=== PATIENT | female | born 1980 | race Caucasian/White ===

== ENCOUNTER 2017-02-06 10:24 | Emergency (ER) | payer MEDICARE, MEDICAID ==
[~2017-02-06] VITALS: Ht 165.1 cm; Wt 61.5 kg
[~2017-02-06 10:24] MED LIST: LANTUS2P SC; METF500 PO; XARE20TA PO
[2017-02-06 10:27] VITALS: BP 121/82; PULSE 97; RESP 18; TEMP 98.6; O2SAT 97
[2017-02-06] MEDS ORDERED: LANTUS2P SQ (10:50)
[2017-02-06] MEDS ORDERED: METF1000 PO (10:50)
[2017-02-06] MEDS ORDERED: GLUC10TA3 PO (10:50)
[2017-02-06] MEDS ORDERED: OMEP40CA2 PO (10:51)
[2017-02-06] MEDS ORDERED: SODIUM CHLOR 0.9% 1000 ML INJ 1,000 ML IV ONE (11:07)
--- NOTE | 2017-02-06 11:20 | PD ---
HPI Chief Complaint: Medical Clearance Time Seen by Provider: 11:09 Travel History International Travel<30 days: No Contact w/Intl Traveler<30days: No Traveled to known affect area: No History of Present Illness HPI 36 year old female presents to the emergency department for evaluation of lower abdominal cramping, increased vaginal bleeding since giving on 01/21/17 in [place], [place]. She has not followed up with a solar/renewable energy sales/croze cutter helper since delivering her child. She states she is unsure how far along she was when she gave , but denies any complications. She states she did have OB care during her . She states after giving , she moved to [place] to be near family. She denies any fevers, chills. She reports being a G7 , P7. Patient is unsure how many pads she is going through states she changes her when she goes to the bathroom. Patient denies any chest pain. She does report history of anemia, type 2 diabetes, asthma, DVT in the arm. She states she has not taken her Xarelto in a few weeks. Patient is also asking for a tubal ligation. [facility] Past Medical History Anemia: Yes Arthritis: Yes Asthma: Yes Chest Pain: Yes Diabetes: Yes Patient Takes Glucophage: Yes Diminished Hearing: No Headaches: Yes Respiratory: Yes (BRONCHITIS) Migraines: Yes Influenza Vaccination: No ?: Not LMP: APRIL 2016 : 7 Para: 6 Miscarriage: 0 : 0 Dilation and Curettage (D&C): Yes (09/2007 AFTER OF CHILD (PT DENIES)) Social History Alcohol Use: No Tobacco Use: Yes (10 cigarettes a day) Substance Use: No Allergies-Medications (Allergen,Severity, Reaction): Coded Allergies: Cipro (Verified Allergy, Severe, rash, 02/06/17) Doxycycline (Verified Allergy, Severe, rash, 02/06/17) Penicillin (Verified Allergy, Severe, hives, 02/06/17) Dilaudid (Unverified Adverse Reaction, Intermediate, ITCHING, 02/06/17) Tramadol (Verified Adverse Reaction, Intermediate, ITCH, 02/06/17) Reported Meds & Prescriptions Reported Meds & Active Scripts Active Reported Omeprazole 40 Mg Cap 40 Mg PO TID Lantus Inj (Insulin Glargine) 1,000 Unit/10 Ml Vial 14 Units SQ HS Metformin (Metformin HCl) 1,000 Mg Tab 1,000 Mg PO HS With a meal Glucotrol (Glipizide) 10 Mg Tab 10 Mg PO DAILY Take 30 minutes before a meal Xarelto (Rivaroxaban) 20 Mg Tab 20 Mg PO DAILY Review of Systems Except as stated in HPI: all other systems reviewed are Neg Physical Exam Narrative GENERAL: Well-nourished, well-developed female patient, ambulatory. Afebrile. SKIN: Focused skin assessment warm/dry. HEAD: Normocephalic. Afebrile. EYES: No scleral icterus. No injection or drainage. NECK: Supple, trachea midline. No JVD or lymphadenopathy. CARDIOVASCULAR: Regular rate and rhythm without murmurs, gallops, or rubs. RESPIRATORY: Breath sounds equal bilaterally. No accessory muscle use. Lungs sounds are clear to auscultation. GASTROINTESTINAL: Abdomen soft and nondistended. Pelvic tenderness to palpation. No peritoneal signs. MUSCULOSKELETAL: No cyanosis, or edema. BACK: Nontender without obvious deformity. No CVA tenderness. Data Data Last Documented VS Vital Signs Date Time Temp Pulse Resp B/P Pulse Ox O2 Delivery O2 Flow Rate FiO2 02/06/17 10:27 98.6 97 18 121/82 97 Room Air Orders Complete Blood Count With Diff (02/06/17 11:07) Basic Metabolic Panel (Bmp) (02/06/17 11:07) Us Pelvis Comp Rose Grading Supervisor/Non-Preg (02/06/17 ) Urinalysis - C+S If Indicated (02/06/17 11:07) Iv Access Insert/Monitor (02/06/17 11:07) Sodium Chlor 0.9% 1000 Ml Inj (Ns 1000 M (02/06/17 11:07) Ed Urine Pregnancytest Poc (02/06/17 11:07) Urine Culture (02/06/17 11:53) Beta Hcg (Quant/Titer) (02/06/17 12:20) Labs Laboratory Tests Test 02/06/17 02/06/17 02/06/17 11:25 11:32 12:20 White Blood Count 9.7 TH/MM3 Red Blood Count 4.19 MIL/MM3 Hemoglobin 9.9 GM/DL Hematocrit 31.4 % Mean Corpuscular Volume 74.9 FL Mean Corpuscular Hemoglobin 23.5 PG Mean Corpuscular Hemoglobin 31.4 % Concent Red Cell Distribution Width 18.5 % Platelet Count 472 TH/MM3 Mean Platelet Volume 6.9 FL Neutrophils (%) (Auto) 66.0 % Lymphocytes (%) (Auto) 26.6 % Monocytes (%) (Auto) 4.3 % Eosinophils (%) (Auto) 2.1 % Basophils (%) (Auto) 1.0 % Neutrophils # (Auto) 6.4 TH/MM3 Lymphocytes # (Auto) 2.6 TH/MM3 Monocytes # (Auto) 0.4 TH/MM3 Eosinophils # (Auto) 0.2 TH/MM3 Basophils # (Auto) 0.1 TH/MM3 CBC Comment DIFF FINAL Differential Comment Sodium Level 138 MEQ/L Potassium Level 3.7 MEQ/L Chloride Level 107 MEQ/L Carbon Dioxide Level 23.1 MEQ/L Anion Gap 8 MEQ/L Blood Urea Nitrogen 13 MG/DL Creatinine 0.84 MG/DL Estimat Glomerular Filtration 76 ML/MIN Rate Random Glucose 84 MG/DL Calcium Level 8.9 MG/DL Urine Color YELLOW Urine Turbidity CLEAR Urine pH 6.0 Urine Specific [place] 1.017 Urine Protein 30 mg/dL Urine Glucose (UA) NEG mg/dL Urine Ketones NEG mg/dL Urine Occult Blood MOD Urine Nitrite NEG Urine Bilirubin NEG Urine Urobilinogen LESS THAN 2.0 MG/DL Urine Leukocyte Esterase LARGE Urine RBC 10 /hpf Urine WBC 7 /hpf Urine Squamous Epithelial 1 /hpf Cells Urine Transitional Epithelial <1 /hpf Cells Urine Bacteria RARE /hpf Urine Mucus FEW /lpf Microscopic Urinalysis Comment CULT NOT INDICATED Human Chorionic Gonadotropin, 3 MIU/ML Quant MDM Medical Decision Making Medical Screen Exam Complete: Yes Emergency Medical Condition: Yes Medical Record Reviewed: Yes Interpretation(s) Last Impressions Pelvis Ultrasound 02/06/17 0000 Signed Impressions: Service Date/Time: January 11:36 - CONCLUSION: 1. Heterogeneic debris/fluid in the endometrial canal characteristic of the reported history of the recent vaginal delivery. Retained products of conception cannot be excluded. 2. No free fluid. Left ovary sonographically normal. Right ovary is not visualized. Babatunde Palacios MD Differential Diagnosis Postpartal bleeding versus retained products of conception versus UTI versus anemia Narrative Course 36-year-old female presents to the emergency department for evaluation of abdominal cramping and increasing vaginal bleeding since giving on January. She is not currently following up with a croze cutter helper. The patient is also asking for a tubal ligation. She is aware that we do not admit for this from the emergency department she needs to follow up outpatient for this. CBC, BMP, UA, urine test are ordered and pending. Patient gives verbal consent for pelvic exam. Ultrasound is ordered and pending. Patient is given normal saline 1 L IV bolus. CBC shows anemia hemoglobin 9.9, hematocrit 31.4, this appears stable compared to previous labs. BMP shows no acute abnormality. UA shows large leukocyte esterase, 10 RBC, 7 WBC, rare bacteria. UPT is negative. US shows heterogeneic debris/fluid in the endometrial canal characteristic of the reported history of the recent vaginal delivery. Retained products of conception cannot be excluded;. No free fluid. Left ovary sonographically normal. Right ovary is not visualized.\ I discussed US findings with my attending physician, Dr. Foster, who recommends Beta HCG. This is drawn and is 3. Patient is stable for outpatient follow up with gynecology. She will be discharged with a prescription for Macrobid for UTI. The patient was discharged in stable condition with instructions, including return instructions and follow up instructions. Diagnosis Primary Impression: bleeding Qualified Code: O72.1 - hemorrhage, unspecified type Additional Impression: Urinary tract infection Qualified Code: N30.01 - Acute cystitis with hematuria Referrals: Marbin Álvarez MD call for appointment Patient Instructions: General Instructions, Bleeding (ED), Urinary Tract Infection in Women (ED) Additional Instructions: Take antibiotic as directed until gone. Follow-up with your croze cutter helper. Dr. Álvarez is our solar/renewable energy sales on-call today. His information is attached. Return to the emergency department for any acute worsening of symptoms. Med/Other Pt SpecificInfo: Prescription(s) given Scripts Nitrofurantoin Monohydrate Macrocrystals (Macrobid)100 Mg Mej002 Mg PO BID 7 Days Ref 0 Prov:Geena Guan 02/06/17 Disposition: DISCHARGE HOME Condition: Stable Geena Guan Feb 06, 2017 11:20
[2017-02-06 11:41] LABS: AUTOMATED NEUTROPHIL # 6.4 TH/MM3 (1.8-7.7); BASOPHIL # 0.1 TH/MM3 (0-0.2); EOSINOPHIL # 0.2 TH/MM3 (0-0.4); EOSINOPHIL % 2.1 % (0.0-4.0); HEMATOCRIT 31.4 % (35.0-46.0); HEMO FLAGS DIFF FINAL; LYMPH % 26.6 % (9.0-44.0); LYMPHOCYTE # 2.6 TH/MM3 (1.0-4.8); MEAN CELL VOLUME 74.9 FL (80.0-100.0); MEAN CORPUSCULAR HEMOGLOBIN 23.5 PG (27.0-34.0); MEAN CORPUSCULAR HGB CONC 31.4 % (32.0-36.0); MONO % 4.3 % (0.0-8.0); PLATELET COUNT 472 TH/MM3 (150-450); RED BLOOD COUNT 4.19 MIL/MM3 (4.00-5.30); RED CELL DISTRIBUTION WIDTH 18.5 % (11.6-17.2); WHITE BLOOD COUNT 9.7 TH/MM3 (4.0-11.0)
[2017-02-06 11:45] LABS: BACTERIA, URINE RARE /hpf; BLOOD, URINE MOD (NEG); GLUCOSE,URINE NEG (NEG); KETONE, URINE NEG (NEG); MUCUS URINE FEW /lpf (OCC); NITRITE,URINE NEG (NEG); SQUAMOUS EPITHELIAL CELL URINE 1 /hpf (0-5); TRANSITIONAL EPI CELLS, URINE <1 /hpf; URINE COLOR YELLOW (YELLW/STRAW)
[2017-02-06 11:46] LABS: COMMENT (UR) CULT NOT INDICATED; CULTURE IF INDICATED CULT NOT INDICATED
[2017-02-06 11:55] LABS: BICARBONATE 23.1 MEQ/L (21.0-32.0); POTASSIUM 3.7 MEQ/L (3.5-5.1)
--- NOTE | 2017-02-06 12:15 | RADRPT ---
EXAM DATE/TIME: 02/06/2017 11:36 [facility] COMPARISON: No previous studies available for comparison. INDICATIONS : Pelvic pains and heavy bleeding status post 01/21/2017. MEDICAL HISTORY : Diabetes mellitus type 2. Asthma. Bronchitis. Anemia. Heart murmur. SURGICAL HISTORY : None. ENCOUNTER: Initial ACUITY: 2 weeks PAIN SCORE: 7/10 LOCATION: Bilateral pelvis MEASUREMENTS: UTERUS: 12.0 x 9.3 x 6.7 cm ENDOMETRIAL STRIPE: 16 mm RIGHT OVARY: Non visualized LEFT OVARY: 3.2 x 1.8 x 1.9 cm FINDINGS: UTERUS: The myometrium has homogeneous echotexture without mass. The endometrial canal contains heterogeneic debris/fluid. RIGHT OVARY: Right ovary is not visualized LEFT OVARY: Ovary contains no mass or significant cystic lesion. MISCELLANEOUS: No free fluid. CONCLUSION: 1. Heterogeneic debris/fluid in the endometrial canal characteristic of the reported history of the r ecent vaginal delivery. Retained products of conception cannot be excluded. 2. No free fluid. Left ovary sonographically normal. Right ovary is not visualized. Babatunde Palacios MD on February 06, 2017 at 12:10 Board Certified Radiologist. This report was verified electronically.
[2017-02-06 12:45] LABS: BETA HCG QUANT 3 MIU/ML (0-5)
[2017-02-06] MEDS ORDERED: MACR100C2 PO (13:05)
== END 2017-02-06 13:20 | disposition home or self-care (01) ==
LOC: NEPD 10:24
DX: O72.1 Other immediate postpartum hemorrhage (principal); O86.20 Urinary tract infection following delivery, unspecified; O90.81 Anemia of the puerperium; O24.93 Unspecified diabetes mellitus in the puerperium; J45.909 Unspecified asthma, uncomplicated; Z86.718 Personal history of other venous thrombosis and embolism; O99.335 Smoking (tobacco) complicating the puerperium; Z79.4 Long term (current) use of insulin; Z79.899 Other long term (current) drug therapy
CPT/HCPCS: 76856; 80048; 81001; 84702; 84703; 85025; 96360; 96361; 99284; J7030

== ENCOUNTER 2017-03-21 09:15 | Emergency (ER) | payer MEDICARE, MEDICAID ==
[~2017-03-21] VITALS: Ht 165.1 cm; Wt 65.0 kg
[~2017-03-21 09:15] MED LIST changes: +GLUC10TA3 PO; -LANTUS2P SC; +LANTUS2P SQ; +MACR100C2 PO; +METF1000 PO; -METF500 PO; +OMEP40CA2 PO
[2017-03-21] MEDS ORDERED: IOHEXOL 350 MG/ML 10 ML VIAL (for RAD DIAG) IVCONTRAST ONE (09:16)
[2017-03-21 09:17] VITALS: BP 118/72; PULSE 123; RESP 18; TEMP 100.2; O2SAT 98
[2017-03-21 09:28] VITALS: BP 106/66; PULSE 114; RESP 22; O2SAT 92
[2017-03-21] MEDS ORDERED: SODIUM CHLOR 0.9% 1000 ML INJ 1,000 ML IV SCH (09:41)
[2017-03-21] MEDS ORDERED: SODIUM CHLORIDE 0.9% FLUSH 10 ML FLUSH IV FLUSH PRN (09:45)
[2017-03-21] MEDS ORDERED: ONDANSETRON HCL 4 MG/2 ML VIAL IVP ONE (09:45)
--- NOTE | 2017-03-21 09:59 | PD ---
HPI Chief Complaint: Abdominal Pain Time Seen by Provider: 09:41 Travel History International Travel<30 days: No Contact w/Intl Traveler<30days: No Traveled to known affect area: No History of Present Illness HPI 36-year-old female who is unfortunate homeless, presents today with complaints of abdominal pain with associated nausea vomiting. Patient also has a productive cough. She is noted to have a low-grade fever here. The patient is a extremely poor historian. She also reports that she's had a period for 4 weeks. She wears depends garments. She states that she has no history of previous prolonged vaginal bleeding. He denies any shortness of breath or dizziness. There is no reported lightheadedness. She does use a wheelchair because she states she has an unsteady gait which is not new. PFSH Past Medical History Anemia: Yes Arthritis: Yes Asthma: Yes Chest Pain: Yes Diabetes: Yes Patient Takes Glucophage: Yes Diminished Hearing: No Headaches: Yes Respiratory: Yes (BRONCHITIS) Migraines: Yes ?: Unknown LMP: 03-21-17 : 7 Para: 6 Miscarriage: 0 : 0 Dilation and Curettage (D&C): Yes (09/2007 AFTER OF CHILD (PT DENIES)) Social History Alcohol Use: No Tobacco Use: Yes Substance Use: No Allergies-Medications (Allergen,Severity, Reaction): Coded Allergies: ciprofloxacin (Unverified Allergy, Severe, rash, 03/21/17) doxycycline (Unverified Allergy, Severe, rash, 03/21/17) penicillin G (Unverified Allergy, Severe, hives, 03/21/17) hydromorphone (Unverified Adverse Reaction, Intermediate, ITCHING, 03/21/17) tramadol (Unverified Adverse Reaction, Intermediate, ITCH, 03/21/17) Reported Meds & Prescriptions Reported Meds & Active Scripts Active Macrobid (Nitrofurantoin Monoh/Nitrofur Macro) 100 Mg Cap 100 Mg PO BID 14 Days Macrobid (Nitrofurantoin Monoh/Nitrofur Macro) 100 Mg Cap 100 Mg PO BID 7 Days Reported Omeprazole 40 Mg Cap 40 Mg PO TID Lantus Inj (Insulin Glargine) 1,000 Unit/10 Ml Vial 14 Units SQ HS Metformin (Metformin HCl) 1,000 Mg Tab 1,000 Mg PO HS With a meal Glucotrol (Glipizide) 10 Mg Tab 10 Mg PO DAILY Take 30 minutes before a meal Xarelto (Rivaroxaban) 20 Mg Tab 20 Mg PO DAILY Review of Systems Except as stated in HPI: all other systems reviewed are Neg General / Constitutional: No: Fever, Chills HENT: No: Headaches, Lightheadedness, Neck Pain Cardiovascular: No: Chest Pain or Discomfort, Palpitations Respiratory: Positive: Cough, Wheezing, No: Shortness of Breath Gastrointestinal: Positive: Nausea, Vomiting, Abdominal Pain (mid supraumbilical), No: Diarrhea Genitourinary: Positive: Vaginal Bleeding (spotting 4 weeks), No: Frequency, Dysuria, Incontinence Musculoskeletal: Positive: Weakness (chronic lower extremity weakness with unsteady gait), No: Pain Neurologic: Positive: Other (chronic lower extremity weakness which is not new with associated unsteady gait.), No: Headache, Change in Mentation Physical Exam Narrative GENERAL: Well-developed well-nourished female who appears disheveled and unkept. The patient has occasional wet sounding cough. SKIN: Focused skin assessment warm/dry. HEAD: Atraumatic. Normocephalic. EYES: No scleral icterus. No injection or drainage. ENT: No nasal bleeding or discharge. Mucous membranes pink and moist. NECK: Trachea midline. Supple. CARDIOVASCULAR: Regular rate and rhythm. No murmur appreciated. RESPIRATORY: No accessory muscle use. Clear to auscultation. Breath sounds equal bilaterally. GASTROINTESTINAL: Abdomen soft, nondistended. Patient has tenderness to palpation in her supraumbilical area. There is no rebound or guarding. MUSCULOSKELETAL: No obvious deformities. No clubbing. No cyanosis. No edema. NEUROLOGICAL: Awake and alert. No obvious cranial nerve deficits. Motor grossly within normal limits. Normal speech. PSYCHIATRIC: Appropriate mood and affect; insight and judgment normal. Data Data Last Documented VS Vital Signs Date Time Temp Pulse Resp B/P (MAP) Pulse Ox O2 Delivery O2 Flow Rate FiO2 03/21/17 12:00 100 16 109/71 (84) 95 Nasal Cannula 2.00 03/21/17 09:17 100.2 Orders Orders Complete Blood Count With Diff (03/21/17 09:41) Comprehensive Metabolic Panel (03/21/17 09:41) Lipase (03/21/17 09:41) Urinalysis - C+S If Indicated (03/21/17 09:41) Ct Abd/Pel W Iv Contrast(Rout) (03/21/17 09:41) Iv Access Insert/Monitor (03/21/17 09:41) Ecg Monitoring (03/21/17 09:41) Oximetry (03/21/17 09:41) Ondansetron Inj (Zofran Inj) (03/21/17 09:45) Sodium Chlor 0.9% 1000 Ml Inj (Ns 1000 M (03/21/17 09:41) Sodium Chloride 0.9% Flush (Ns Flush) (03/21/17 09:45) Ed Urine Pregnancytest Poc (03/21/17 09:41) Oral Contrast - Adult (03/21/17 09:47) Diatrizoate Liq ( Gastroview Liq) (03/21/17 10:09) Iohexol 350 Inj (Omnipaque 350 Inj) (03/21/17 09:16) Nitrofurantoin Monohyd Macrocr (Macrobid (03/21/17 15:15) Labs Laboratory Tests Test 03/21/17 09:50 03/21/17 10:10 White Blood Count 13.8 TH/MM3 Red Blood Count 4.91 MIL/MM3 Hemoglobin 11.3 GM/DL Hematocrit 35.5 % Mean Corpuscular Volume 72.3 FL Mean Corpuscular Hemoglobin 22.9 PG Mean Corpuscular Hemoglobin Concent 31.7 % Red Cell Distribution Width 21.5 % Platelet Count 390 TH/MM3 Mean Platelet Volume 7.8 FL Neutrophils (%) (Auto) 82.5 % Lymphocytes (%) (Auto) 11.9 % Monocytes (%) (Auto) 3.8 % Eosinophils (%) (Auto) 1.6 % Basophils (%) (Auto) 0.2 % Neutrophils # (Auto) 11.3 TH/MM3 Lymphocytes # (Auto) 1.6 TH/MM3 Monocytes # (Auto) 0.5 TH/MM3 Eosinophils # (Auto) 0.2 TH/MM3 Basophils # (Auto) 0.0 TH/MM3 CBC Comment DIFF FINAL Differential Comment Blood Urea Nitrogen 7 MG/DL Creatinine 0.92 MG/DL Random Glucose 124 MG/DL Total Protein 8.0 GM/DL Albumin 3.0 GM/DL Calcium Level 8.8 MG/DL Alkaline Phosphatase 115 U/L Aspartate Amino Transf (AST/SGOT) 44 U/L Alanine Aminotransferase (ALT/SGPT) 20 U/L Total Bilirubin 0.4 MG/DL Sodium Level 134 MEQ/L Potassium Level 5.1 MEQ/L Chloride Level 104 MEQ/L Carbon Dioxide Level 24.2 MEQ/L Anion Gap 6 MEQ/L Estimat Glomerular Filtration Rate 68 ML/MIN Lipase 111 U/L Urine Color YELLOW Urine Turbidity CLEAR Urine pH 7.0 Urine Specific [place] 1.017 Urine Protein 100 mg/dL Urine Glucose (UA) NEG mg/dL Urine Ketones NEG mg/dL Urine Occult Blood SMALL Urine Nitrite NEG Urine Bilirubin NEG Urine Urobilinogen LESS THAN 2.0 MG/DL Urine Leukocyte Esterase SMALL Urine RBC 4 /hpf Urine WBC 6 /hpf Urine Squamous Epithelial Cells <1 /hpf Microscopic Urinalysis Comment CULT NOT INDICATED MDM Medical Decision Making Medical Screen Exam Complete: Yes Emergency Medical Condition: Yes Differential Diagnosis Appendicitis versus diverticulitis versus cystitis Narrative Course 36-year-old female presents with nausea vomiting. Vaginal bleeding. The patient's been seen before for vaginal bleeding. CT scan of her arm pelvis shows no evidence of acute findings. White count was elevated. Her urinalysis shows evidence of a urinary tract infection. She is allergic to multiple advice including Cipro Floxin doxycycline and penicillin. She'll be given Macrobid. She's been given one tablet here and will be discharged with a prescription for Macrobid. She is instructed to follow up with her primary care physician for the repeat urinalysis and follow up for her vaginal bleeding. Hemoglobin is stable at this point. Diagnosis Primary Impression: Urinary tract infection Additional Impressions: Nausea & vomiting chronic vaginal bleeding Additional Instructions: Follow up with her primary care physician for repeat urinalysis and 4 year vaginal bleeding. Take antibiotics as prescribed. Med/Other Pt SpecificInfo: Prescription(s) given Scripts Nitrofurantoin Monohydrate Macrocrystals (Macrobid) 100 Mg Cap 100 MG PO BID for Infection for 14 Days, CAP 0 Refills Prov: Vince Andrea MD 03/21/17 Disposition: 01 DISCHARGE HOME Condition: Stable Vince Andrea MD Mar 21, 2017 09:59
[2017-03-21] MEDS ORDERED: DIATRIZOATE MEGLUM/DIATRIZOATE SOD 9 ML CUP ONE (10:09)
[2017-03-21 10:29] LABS: AUTOMATED NEUTROPHIL # 11.3 TH/MM3 (1.8-7.7); BASOPHIL % 0.2 % (0.0-2.0); EOSINOPHIL # 0.2 TH/MM3 (0-0.4); EOSINOPHIL % 1.6 % (0.0-4.0); HEMATOCRIT 35.5 % (35.0-46.0); HEMO FLAGS DIFF FINAL; LYMPH % 11.9 % (9.0-44.0); LYMPHOCYTE # 1.6 TH/MM3 (1.0-4.8); MEAN CELL VOLUME 72.3 FL (80.0-100.0); MEAN CORPUSCULAR HEMOGLOBIN 22.9 PG (27.0-34.0); MEAN CORPUSCULAR HGB CONC 31.7 % (32.0-36.0); MONO % 3.8 % (0.0-8.0); NEUT % 82.5 % (16.0-70.0); PLATELET COUNT 390 TH/MM3 (150-450); RED BLOOD COUNT 4.91 MIL/MM3 (4.00-5.30); RED CELL DISTRIBUTION WIDTH 21.5 % (11.6-17.2); WHITE BLOOD COUNT 13.8 TH/MM3 (4.0-11.0)
[2017-03-21 10:46] LABS: ALKALINE PHOSPHATASE 115 U/L (45-117); TOTAL BILIRUBIN ADULT 0.4 MG/DL (0.2-1.0)
[2017-03-21 10:48] LABS: BLOOD, URINE SMALL (NEG); COMMENT (UR) CULT NOT INDICATED; CULTURE IF INDICATED CULT NOT INDICATED; GLUCOSE,URINE NEG (NEG); KETONE, URINE NEG (NEG); NITRITE,URINE NEG (NEG); SQUAMOUS EPITHELIAL CELL URINE <1 /hpf (0-5); URINE COLOR YELLOW (YELLW/STRAW)
[2017-03-21 10:50] LABS: ALT (GPT) 20 U/L (10-53); ANION GAP 6 MEQ/L (5-15); AST (GOT) 44 U/L (15-37); BICARBONATE 24.2 MEQ/L (21.0-32.0); BLOOD UREA NITROGEN 7 MG/DL (7-18); CHLORIDE 104 MEQ/L (98-107); GLOMERULAR FILTRATION RATE 68 ML/MIN (>89); SODIUM (NA) 134 MEQ/L (136-145)
[2017-03-21 10:51] LABS: POTASSIUM 5.1 MEQ/L (3.5-5.1)
[2017-03-21 12:00] VITALS: BP 109/71; PULSE 100; RESP 16; O2SAT 95
--- NOTE | 2017-03-21 14:38 | RADRPT ---
EXAM DATE/TIME: 03/21/2017 12:32 [facility] COMPARISON: CT ABDOMEN & PELVIS W CONTRAST, November 04, 2013, 20:56. INDICATIONS : Abdominal pain. IV CONTRAST: 82 cc Omnipaque 350 (iohexol) IV ORAL CONTRAST: No oral contrast ingested. RADIATION DOSE: 8.51 CTDIvol (mGy) MEDICAL HISTORY : None SURGICAL HISTORY : None. ENCOUNTER: Initial ACUITY: 1 day PAIN SCALE: 4/10 LOCATION: Bilateral abdomen TECHNIQUE: Volumetric scanning of the abdomen and pelvis was performed. Using automated exposure control and adjustment of the mA and/or kV according to patient size, radiation dose was kept as low as reasonably achievable to obtain optimal diagnostic quality images. DICOM format image data is av ailable electronically for review and comparison. FINDINGS: CT Abdomen: The liver, spleen, pancreas, kidneys, adrenals are unremarkable. There is no evidence for any appreciable pathological adenopathy, free fluid, or bowel obstruction. CT pelvis: There is no evidence for mass, abscess formation, or any significant adenopathy within the pelvis. Small nabothian cyst is present with possible 2.2 cm cyst in the left ovary. There is a tiny subcentimeter bone island in the left acetabulum. CONCLUSION: Essentially unremarkable study. Jordin Denise MD on March 21, 2017 at 14:34 Board Certified Radiologist. This report was verified electronically.
[2017-03-21] MEDS ORDERED: MACR100C2 PO (15:08)
[2017-03-21] MEDS ORDERED: NITROFURANTOIN MONOHYD MACROCR 100 MG CAP PO ONE (15:15)
[2017-03-21 15:53] VITALS: BP 124/67
== END 2017-03-21 15:57 | disposition home or self-care (01) ==
LOC: NEPC 09:15
DX: N39.0 Urinary tract infection, site not specified (principal); N93.9 Abnormal uterine and vaginal bleeding, unspecified
CPT/HCPCS: 74177; 80053; 81001; 83690; 84703; 85025; 96374; 99285; J2405; J7030; Q9963; Q9967

== ENCOUNTER 2017-07-24 11:15 | Emergency (ER) | payer MEDICARE, OTHER ==
[2017-07-24 12:12] LABS: AUTOMATED NEUTROPHIL # 5.6 TH/MM3 (1.8-7.7); BASOPHIL # 0.1 TH/MM3 (0-0.2); BASOPHIL % 0.6 % (0.0-2.0); BILIRUBIN, URINE NEG (NEG); BLOOD, URINE SMALL (NEG); COMMENT (UR) CULT NOT INDICATED; CULTURE IF INDICATED CULT NOT INDICATED; EOSINOPHIL # 0.1 TH/MM3 (0-0.4); EOSINOPHIL % 1.6 % (0.0-4.0); GLUCOSE,URINE NEG (NEG); HEMATOCRIT 38.4 % (35.0-46.0); HEMO FLAGS DIFF FINAL; HEMOGLOBIN 12.2 GM/DL (11.6-15.3); KETONE, URINE NEG (NEG); LYMPH % 24.8 % (9.0-44.0); LYMPHOCYTE # 2.1 TH/MM3 (1.0-4.8); MEAN CELL VOLUME 73.1 FL (80.0-100.0); MEAN CORPUSCULAR HEMOGLOBIN 23.3 PG (27.0-34.0); MEAN CORPUSCULAR HGB CONC 31.8 % (32.0-36.0); MEAN PLATELET VOLUME 7.7 FL (7.0-11.0); MONO % 7.6 % (0.0-8.0); MONOCYTE # 0.6 TH/MM3 (0-0.9); NEUT % 65.4 % (16.0-70.0); NITRITE,URINE NEG (NEG); PLATELET COUNT 341 TH/MM3 (150-450); RED BLOOD COUNT 5.25 MIL/MM3 (4.00-5.30); RED CELL DISTRIBUTION WIDTH 19.5 % (11.6-17.2); SQUAMOUS EPITHELIAL CELL URINE 1 /hpf (0-5); URINE COLOR LIGHT-YELLOW (YELLW/STRAW); URINE LEUKOCYTE ESTERASE NEG (NEG); WHITE BLOOD COUNT 8.6 TH/MM3 (4.0-11.0)
[2017-07-24 12:17] LABS: PROTHROMBIN TIME - PATIENT 10.3 SEC (9.8-11.6)
[2017-07-24 12:23] LABS: ALBUMIN 3.4 GM/DL (3.4-5.0); ANION GAP 10 MEQ/L (5-15); AST (GOT) 13 U/L (15-37); BICARBONATE 25.2 MEQ/L (21.0-32.0); BLOOD UREA NITROGEN 7 MG/DL (7-18); CALCIUM 9.1 MG/DL (8.5-10.1); CHLORIDE 102 MEQ/L (98-107); CREATININE 0.86 MG/DL (0.50-1.00); GLOMERULAR FILTRATION RATE 73 ML/MIN (>89); GLUCOSE,RANDOM 106 MG/DL (74-106); MAGNESIUM 1.9 MG/DL (1.5-2.5); POTASSIUM 3.9 MEQ/L (3.5-5.1); SODIUM (NA) 137 MEQ/L (136-145)
[2017-07-24 12:24] LABS: ALT (GPT) 17 U/L (10-53)
[2017-07-24 12:28] LABS: ALKALINE PHOSPHATASE 122 U/L (45-117); TOTAL BILIRUBIN ADULT 0.2 MG/DL (0.2-1.0); TOTAL PROTEIN 7.9 GM/DL (6.4-8.2); TROPONIN I LESS THAN 0.02 NG/ML (0.02-0.05)
[2017-07-24 12:31] LABS: CREATINE KINASE 63 U/L (26-192)
[2017-07-24] MEDS: SODIUM CHLOR 0.9% 1000 ML INJ 1,000 ML IV (13:00)
== END 2017-07-24 15:06 | disposition home or self-care (01) ==
LOC: NEPD 11:15
DX: J06.9 Acute upper respiratory infection, unspecified (principal); S82.201A Unspecified fracture of shaft of right tibia, initial encounter for closed fracture; M79.1 Myalgia; R42 Dizziness and giddiness; J45.909 Unspecified asthma, uncomplicated; E11.9 Type 2 diabetes mellitus without complications; R94.31 Abnormal electrocardiogram [ECG] [EKG]
CPT/HCPCS: 71046; 73590; 80053; 81001; 82550; 83735; 84484; 84703; 85025; 85610; 85730; 87804; 87804-59; 93005; 93971; 99285-25

== ENCOUNTER 2017-08-14 07:32 | Emergency (ER) | payer MEDICARE ==
[~2017-08-14] VITALS: Ht 165.1 cm; Wt 68.0 kg
[2017-08-14 07:36] VITALS: BP 128/80; PULSE 99; RESP 14; TEMP 97.9; O2SAT 100
--- NOTE | 2017-08-14 08:17 | PD ---
HPI Chief Complaint: Pain: Acute or Chronic Time Seen by Provider: 08:04 Travel History International Travel<30 days: No Contact w/Intl Traveler<30days: No Traveled to known affect area: No History of Present Illness HPI 37-year-old female presents to the emergency department complaining of left shoulder pain 2 weeks. Denies injury. Reports numbness and tingling "most of the time." Denies decreased range of motion, decreased strength, loss of sensation to the affected extremity. Denies fever, vomiting. Has not taken any medication or drainage from his to alleviate her symptoms. Rates pain . Describes it as a throbbing sensation. Raising her arm up above her head. Better at rest. Multiple allergies as listed on the chart. History of diabetes mellitus and murmur. No primary care provider. Has no other medical complaints. No other modifying factors or associated signs and symptoms. History Past Medical Histgory LMP: 07/29/17 Past Surgical History Surgical History: No Previous Surgery Social History Alcohol Use: Yes (OCCASIONALLY) Tobacco Use: Yes (1/2 PPD) Allergies-Medications (Allergen,Severity, Reaction): Coded Allergies: ciprofloxacin (Unverified Allergy, Severe, rash, 03/21/17) doxycycline (Unverified Allergy, Severe, rash, 03/21/17) penicillin G (Unverified Allergy, Severe, hives, 03/21/17) hydromorphone (Unverified Adverse Reaction, Intermediate, ITCHING, 03/21/17) tramadol (Unverified Adverse Reaction, Intermediate, ITCH, 03/21/17) Reported Meds & Prescriptions Reported Meds & Active Scripts Active Macrobid (Nitrofurantoin Monoh/Nitrofur Macro) 100 Mg Cap 100 Mg PO BID 14 Days Macrobid (Nitrofurantoin Monoh/Nitrofur Macro) 100 Mg Cap 100 Mg PO BID 7 Days Reported Omeprazole 40 Mg Cap 40 Mg PO TID Lantus Inj (Insulin Glargine) 1,000 Unit/10 Ml Vial 14 Units SQ HS Metformin (Metformin HCl) 1,000 Mg Tab 1,000 Mg PO HS With a meal Glucotrol (Glipizide) 10 Mg Tab 10 Mg PO DAILY Take 30 minutes before a meal Xarelto (Rivaroxaban) 20 Mg Tab 20 Mg PO DAILY Review of Systems Except as stated in HPI: all other systems reviewed are Neg Physical Exam Narrative GENERAL: Well-nourished, well-developed female patient, in no acute distress SKIN: Warm and dry. HEAD: Atraumatic. Normocephalic. EYES: Pupils equal and round. No scleral icterus. No injection or drainage. ENT: Mucosa pink and moist. Airway patent. NECK: Supple. Trachea midline. CARDIOVASCULAR: Regular rate. RESPIRATORY: No accessory muscle use. GASTROINTESTINAL: Flat. MUSCULOSKELETAL: No obvious deformities. No clubbing. No cyanosis. No edema. Left shoulder with full range of motion; greater than 90 abduction; left shoulder with no obvious deformities; no erythema, edema, ecchymosis; tenderness on palpation to the posterior aspect; shoulders equal; joint stable. Upper extremities supple and non-tense with 2+ radial pulses and sensory intact and no erythema or edema. 5/5 strength. NEUROLOGICAL: Awake and alert. Oriented 3. No obvious cranial nerve deficits. Motor grossly within normal limits. Normal speech. PSYCHIATRIC: Appropriate mood and affect; insight and judgment normal. Data Data Last Documented VS Vital Signs Date Time Temp Pulse Resp B/P (MAP) Pulse Ox O2 Delivery O2 Flow Rate FiO2 08/14/17 07:36 97.9 99 14 128/80 (96) 100 MDM Medical Screen Exam Complete: Yes Emergency Medical Condition: No Differential Diagnosis Shoulder pain Narrative Course Vital signs are stable and the patient is stable for outpatient follow-up and treatment. The Patient has no urgent or emergent medical complaints. There is no emergent or urgent medical need at this time. I instructed the patient to follow up with their primary care provider. A medical screening exam was performed: At the time of evaluation the presenting medical condition was determined not to be of an emergent nature. The patient was given the option of receiving additional care, but declined. Patient was given options for additional community resources from which to obtain care. The Patient Has Been advised to seek medical attention for their presenting complaint. The patient has been advised to return to the ER at any time if an emergent condition develops. Primary Impression: Encounter for medical screening examination Condition: Stable Joselin Geiger Aug 14, 2017 08:17
== END 2017-08-14 08:27 | disposition left against medical advice (07) ==
LOC: NEPD 07:32
DX: M25.512 Pain in left shoulder (principal); R20.0 Anesthesia of skin; R20.2 Paresthesia of skin; E11.9 Type 2 diabetes mellitus without complications; R01.1 Cardiac murmur, unspecified; F17.200 Nicotine dependence, unspecified, uncomplicated; Z79.4 Long term (current) use of insulin; Z79.899 Other long term (current) drug therapy; Z88.0 Allergy status to penicillin
CPT/HCPCS: 99281